=== PATIENT | female | born 1950 | race Caucasian/White ===

== ENCOUNTER 2019-11-18 23:26 | Emergency (ER) | payer OTHER, MEDICARE, BC ==
--- NOTE | 2019-11-18 23:53 | EDM.PDOC ---
ED HPI GENERAL MEDICAL PROBLEM - General Chief Complaint: Trauma Stated Complaint: FELL [place] Time Seen by Provider: 11/18/19 23:40 Source of Information: Reports: Patient History Limitations: Reports: No Limitations - History of Present Illness INITIAL COMMENTS - FREE TEXT/NARRATIVE: HPI: This 69 yo female patient was brought to the ED due to a ground level fall. The patient [place] and [place] directly on the left side of her face. The patient reports pain to the left forehead, left eye and left wrist due to the fall. The patient reports she had no loss of consciousness before, during or after the fall. The patient reports she is currently on Warfarin. Primary Survey Airway: open and patient Breathing: regular without additional effort Circulation: no major bleeding noted Deformity: swelling or the left forehead and left eye Expose: as appropriate GCS: 15 Secondary Survey HEENT Head: contusion with swelling of the left forehead and left orbit Eyes: PERRLA (Right). The patient is unable to open the left eye due to excessive swelling and tenderness Ears: no obvious trauma, canals open, hearing aids in place bilaterally Nose: no deformity, scant dried blood bilateral nares Mouth: no noted trauma Throat: no abnormalities noted Neck: Subtle, normal range of motion no cervical tenderness Chest: lung sounds were clear and equal bilaterally, Heart was RRR, no murmurs, rubs or gallop Abdomen: normoactive bowel sounds, no organomegally, no tenderness on palpation Pelvis: stable Extremities: CMS intact Provider Trauma Notes Arrival Time: 1135 GCS on Arrival: 15 C-collar present on arrival: No GCS at 1 hour: 15 Off spine board: NA Time primary survey: 1140 Time secondary survey: 1145 Time C-collar cleared: 0035 By: DS Time removed: GCS on discharge: 15 Onset: Today Duration: Minutes: Location: Reports: Head, Face, Upper Extremity, Left Quality: Reports: Ache, Throbbing Severity: Moderate Improves with: Reports: None Worsens with: Reports: None Context: Reports: Trauma (ground level fall) Head Pain Score (Numeric/FACES): 9 - Related Data Allergies Allergy/AdvReac Type Severity Reaction Status Date / Time Unable to Assess Allergy Unverified 11/18/19 23:37 Home Meds: Home Meds Warfarin [Coumadin] 5 mg PO DAILY 11/18/19 [History] Review of Systems - Review of Systems Review Of Systems: Comprehensive ROS is negative, except as noted in HPI. ED EXAM, GENERAL - Physical Exam Exam: See Below Exam Limited By: No Limitations General Appearance: Alert, WD/WN, Mild Distress Eye Exam: Right Eye: EOMI, Normal Inspection, PERRL, Left Eye: Other (Swelling and pain limited assessment) Ears: Normal External Exam, Other (Bilateral hearing aids) Nose: Other (scant dried blood bilateral nares) Throat/Mouth: Normal Inspection, Normal Lips, Normal Teeth, Normal Gums, Normal Oropharynx, Normal Voice, No Airway Compromise Head: Atraumatic, Normocephalic Neck: Normal Inspection, Supple, Non-Tender, Full Range of Motion Respiratory/Chest: No Respiratory Distress, Lungs Clear, Normal Breath Sounds, No Accessory Muscle Use, Chest Non-Tender Cardiovascular: Normal Peripheral Pulses, Regular Rate, Rhythm, No Edema, No Gallop, No JVD, No Murmur, No Rub GI/Abdominal: Normal Bowel Sounds, Soft, Non-Tender, No Organomegaly, No Distention, No Abnormal Bruit, No Mass (Female) Exam: Deferred Rectal (Female) Exam: Deferred Back Exam: Normal Inspection, Full Range of Motion, NT Extremities: Arm Pain (left wrist) Neurological: Alert, Oriented, CN II-XII Intact, Normal Cognition, Normal Gait, Normal Reflexes, No Motor/Sensory Deficits Psychiatric: Normal Affect, Normal Mood Skin Exam: Other (swelling to the left forehead and left eye) Lymphatic: No Adenopathy Course - Vital Signs Last Recorded V/S: Last Vital Signs Temp 35.9 C L 11/18/19 23:29 Pulse 74 11/18/19 23:29 Resp 18 11/18/19 23:29 BP 167/75 H 11/18/19 23:29 Pulse Ox 95 11/18/19 23:29 - Orders/Labs/Meds Labs: Laboratory Tests 11/18/19 11/18/19 11/18/19 Range/Units 23:46 23:46 23:46 WBC 9.4 (5.0-10.0) 10^3/uL RBC 3.91 L (4.2-5.4) 10^6/uL Hgb 12.6 (12.0-16.0) g/dL Hct 38.0 (37.0-47.0) % MCV 97.2 (80-100) fL MCH 32.2 (27.0-34.0) pg MCHC 33.2 (33.0-35.0) g/dL Plt Count 202 (150-450) 10^3/uL Neut % (Auto) 77.3 H (42.2-75.2) % Lymph % (Auto) 13.4 L (20.5-50.1) % [place] % (Auto) 7.0 (2-8) % Eos % (Auto) 2.0 (1.0-3.0) % Baso % (Auto) 0.3 (0.0-1.0) % PT 35.0 H (9.0-12.0) SEC INR 3.7 H (0.9-1.2) Sodium 133 L (136-145) mmol/L Potassium 4.5 (3.5-5.1) mmol/L Chloride 96 L (98-107) mmol/L Carbon Dioxide 30 (21-32) mmol/L Anion Gap 11.5 (7-13) mEq/L BUN 22 H (7-18) mg/dL Creatinine 1.09 H (0.55-1.02) mg/dL Est Cr Clr Drug Dosing 44.32 mL/min Estimated GFR (MDRD) 49 BUN/Creatinine Ratio 20.2 (No establ ref range) Glucose 360 H (74-99) mg/dL Calcium 9.1 (8.5-10.1) mg/dL Total Bilirubin 1.0 (0.2-1.0) mg/dL AST 23 (15-37) U/L ALT 31 (14-59) U/L Alkaline Phosphatase 89 (46-116) U/L Total Protein 7.3 (6.4-8.2) g/dL Albumin 3.5 (3.4-5.0) g/dL Globulin 3.8 Albumin/Globulin Ratio 0.9 Meds: Medications Discontinued Medications Generic Name Dose Route Start Last Admin Trade Name Freq PRN Reason Stop Dose Admin Acetaminophen 650 mg 11/19/19 00:34 Tylenol PO 11/19/19 00:35 NOW ONE Cephalexin 500 mg 11/19/19 00:34 Keflex PO 11/19/19 00:35 ONETIME ONE - Re-Assessments/Exams Free Text/Narrative Re-Assessment/Exam: 11/19/19 00:37 The patient reports she continues to have pain over the left eye, but reports the pain is currently something she can put up with. Departure - Departure Time of Disposition: 00:38 Disposition: Home, Self-Care 01 Condition: Fair Clinical Impression: Fracture of left orbital floor Qualifiers: Encounter type: initial encounter Fracture type: closed Qualified Code(s): S02.32XA - Fracture of orbital floor, left side, initial encounter for closed fracture Contusion of forehead Qualifiers: Encounter type: initial encounter Qualified Code(s): S00.83XA - Contusion of other part of head, initial encounter Strain of left wrist Qualifiers: Encounter type: initial encounter Qualified Code(s): S66.912A - Strain of unspecified muscle, fascia and tendon at wrist and hand level, left hand, initial encounter - Discharge Information *PRESCRIPTION DRUG MONITORING PROGRAM REVIEWED*: Not Applicable *COPY OF PRESCRIPTION DRUG MONITORING REPORT IN PATIENT [facility]: Not Applicable Instructions: Facial or Scalp Contusion, [id number] Forms: ED Department Discharge Care Plan Goals: The patient was advised of the examination, lab, CT and x-ray results during the visit. The patient was given an oral dose of Tylenol and Keflex while in the ED. The patient was discharged with a script for Keflex (500 mg) #30 to take 1 by mouth 3 times per day for 10 days. The patient was advised to avoid blowing her nose over the next week. The patient should follow-up with her primary care facility for continued evaluation and management early next week (to allow the swelling to reduce). If the patient has any additional symptoms or concerns, the patient should either return to the emergency department or visit her primary care facility. Sepsis Event Note (ED) - Evaluation Sepsis Screening Result: No Definite Risk - Focused Exam Vital Signs: Vital Signs Temp Pulse Resp BP Pulse Ox 11/18/19 23:29 35.9 C L 74 18 167/75 H 95
[2019-11-19 00:10] LABS: ANION GAP 11.5 mEq/L (7-13)
--- NOTE | 2019-11-19 00:16 | CT ---
PROCEDURE INFORMATION: Exam: CT Head Without Contrast Exam date and time: 11/18/2019 11:53 PM Age: 69 years old Clinical indication: Injury or trauma; Fall; Initial encounter; Abrasion; Forehead; Injury date: Today; Additional info: Ground level fall TECHNIQUE: Imaging protocol: Computed tomography of the head without contrast. Radiation optimization: All CT scans at this facility use at least one of these dose optimization techniques: automated exposure control; mA and/or kV adjustment per patient size (includes targeted exams where dose is matched to clinical indication); or iterative reconstruction. COMPARISON: No relevant prior studies available. FINDINGS: Brain: There there is mild diffuse nonspecific white matter lucency. Differential diagnosis includes demyelination, gliosis, small vessel disease. Small vessel disease is favored. No mass, collection or hemorrhage. No evolving infarct. Ventricles: There is moderate generalized cerebral volume loss. Bones/joints: There is no evidence of acute skull fracture. Please refer to facial bone report Sinuses: The visualized paranasal sinuses are normal. Mastoid air cells: The temporal bones are symmetric and unremarkable. Mastoid air cells well aerated. Soft tissues: There is extensive soft tissue swelling in the left forehead in left periorbital region. There is a focal hematoma measuring at least 3 cm. IMPRESSION: 1. There are no acute intracranial findings. 2. Extensive soft tissue injury in the left frontal region left periorbital region. Please refer to facial bone report
--- NOTE | 2019-11-19 00:22 | CR ---
PROCEDURE INFORMATION: Exam: XR Left Wrist Exam date and time: 11/18/2019 11:41 PM Age: 69 years old Clinical indication: Injury or trauma; Fall; Initial encounter; Abrasion; Wrist; Left; Injury date: Today; Additional info: Ground level fall, left wrist pain TECHNIQUE: Imaging protocol: XR Left wrist. Views: 3 or more views. COMPARISON: No relevant prior studies available. FINDINGS: Bones/joints: Lateral view shows a dorsal 4 mm bone fragment which appears corticated and could represent an old triquetrum fracture. Recommend clinical correlation. 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 Radial carpal joint narrowing consistent with arthritis. Soft tissues: Mild soft tissue swelling of the wrist. IMPRESSION: 1. Dorsal bone fragment on lateral view may represent a triquetrum fracture. This is age indeterminate. Recommend clinical correlation. 2. 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 Arthritic narrowing of the radial carpal joint. 3. Soft tissue swelling.
--- NOTE | 2019-11-19 00:23 | CT ---
PROCEDURE INFORMATION: Exam: CT Maxillofacial Without Contrast Exam date and time: 11/18/2019 11:53 PM Age: 69 years old Clinical indication: Injury or trauma; Fall; Initial encounter; Abrasion; Head/scalp and forehead; Loss of consciousness not known; Injury date: Today; Additional info: Ground level fall TECHNIQUE: Imaging protocol: Computed tomography images of the face without contrast. Radiation optimization: All CT scans at this facility use at least one of these dose optimization techniques: automated exposure control; mA and/or kV adjustment per patient size (includes targeted exams where dose is matched to clinical indication); or iterative reconstruction. COMPARISON: No relevant prior studies available. FINDINGS: Orbits: There is no entrapment of the extra-ocular muscles. Bones/joints: There is a minimally depressed comminuted fracture of the left orbital floor. There is a small hematoma in the left orbital floor which causing slight elevation of the inferior rectus. The hematoma measures 2-3 mm in thickness. The left medial orbital wall is fractured as well. Several bony fragments are displaced into the ethmoid complex. There is opacification of multiple left-sided ethmoid air cells. No sinus margin fracture seen. No right orbital abnormality is seen. The zygomatic arches are intact Sinuses: There is no fluid level in left maxillary sinus. No sinus margin fracture seen. Soft tissues: This extensive soft tissue swelling/hematoma in the left forehead and in the left periorbital region. The soft tissue abnormality appears preseptal. The intraorbital hematoma described above is believed related to the orbital floor fracture as opposed to the anterior soft tissue injury. IMPRESSION: 1. Comminuted minimally depressed left orbital floor fracture. Comminuted displaced left medial orbital wall fracture. 2. There is a small intraorbital hematoma associated with the inferior wall fracture. 3. No entrapment of the extra-ocular muscles. 4. There is extensive soft tissue swelling/hematoma formation in the left forehead and the left preseptal periorbital region
--- NOTE | 2019-11-19 00:28 | CT ---
PROCEDURE INFORMATION: Exam: CT Cervical Spine Without Contrast Exam date and time: 11/18/2019 11:53 PM Age: 69 years old Clinical indication: Injury or trauma; Fall; Initial encounter; Abrasion; Injury date: Today; Additional info: Ground level fall TECHNIQUE: Imaging protocol: Computed tomography images of the cervical spine without contrast. Radiation optimization: All CT scans at this facility use at least one of these dose optimization techniques: automated exposure control; mA and/or kV adjustment per patient size (includes targeted exams where dose is matched to clinical indication); or iterative reconstruction. COMPARISON: No relevant prior studies available. FINDINGS: Vertebrae: There is approximately 1 mm of anterior displacement of C3 upon C4 and C4 upon C5. The facets are appropriately oriented. The facet joints demonstrate marked degenerative hypertrophy and sclerosis. No posterior arch fracture is seen. Multiple facet joints appear partially fused. There is no evidence of acute fracture. 4 mm degenerative cyst in the base of the odontoid process on the right. Advanced degenerative change C1-C2 articulation. Moderate hypertrophy of the transverse ligament. Discs/Spinal canal/Neural foramina: Advanced narrowing of the C5-C6 disc. Mild narrowing of other cervical disc. Endplate sclerosis and large anterior osteophytes seen throughout. Mild left foraminal narrowing C4-C5. No compressive lesion seen otherwise Soft tissues: There is no soft tissue abnormality seen. Lungs: The visualized portions of the lung apices are normal. IMPRESSION: 1. Slight alignment alterations as described are likely degenerative 2. There is no evidence of acute fracture.
[2019-11-19] MEDS ORDERED: Cephalexin 500 MG Cap PO ONE (00:34)
[2019-11-19] MEDS ORDERED: Acetaminophen 325 MG Tab PO ONE (00:34)
== END 2019-11-19 00:43 | disposition home or self-care (01) ==
LOC: DL.ED 23:26
DX: S66.912A Strain of unspecified muscle, fascia and tendon at wrist and hand level, left hand, initial encounter (principal); S02.32XA Fracture of orbital floor, left side, initial encounter for closed fracture; Z79.01 Long term (current) use of anticoagulants; W01.0XXA Fall on same level from slipping, tripping and stumbling without subsequent striking against object, initial encounter
CPT/HCPCS: 36415; 70450; 70486; 72125; 73110; 80053; 85025; 85610; 99284; A9270